=== PATIENT | male | born 1950 | race Caucasian/White ===

== ENCOUNTER 2017-12-28 14:06 | Emergency (ER) | payer MEDICARE, MEDICAID ==
[2017-12-28 14:17] VITALS: BP 136/95
[2017-12-28] MEDS ORDERED: DIPHTH,PERTUSS(ACELL),TET VAC 0.5 ML VIAL IM ONE ×2 (14:32→14:39)
--- NOTE | 2017-12-28 14:36 | ERNOTE ---
Medical Problem HPI - Narrative Date of Service: 12/28/17 - General Chief Complaint: Laceration Time Seen by Provider: 12/28/17 14:12 Source: patient Exam Limitations: no limitations - Immun/Allergies/Home Medications Immunizations: IMMUNIZATION HX Immunizations Up to Date No History of Influenza Vaccine Yes Hx Pneumococcal Vaccination No Home Medications: HOME MEDICATIONS Amitriptyline HCl [Elavil] 50 mg PO HS 12/28/17 [Last Taken Unknown] Aspirin [Aspir-Low] 81 mg PO DAILY 12/28/17 [Last Taken Unknown] Atorvastatin Calcium [Lipitor] 10 mg PO DAILY 12/28/17 [Last Taken Unknown] Cetirizine HCl 10 mg PO DAILY 12/28/17 [Last Taken Unknown] Levothyroxine Sodium [Synthroid] 125 mcg PO DAILY 12/28/17 [Last Taken Unknown] Triamterene/Hydrochlorothiazid [Maxzide 37.5MG/25 MG] 1 tab PO DAILY 12/28/17 [ Last Taken Unknown] amLODIPine BESYLATE [Norvasc] 5 mg PO DAILY 12/28/17 [Last Taken Unknown] clonazePAM [Klonopin] 0.5 mg PO BID 12/28/17 [Last Taken Unknown] - History of Present History Narrative: Pt. comes in with laceration on the volar surface of his R Ring finger that he obtained just prior to arrival when he was changing a light bulb in his garage and the bulb broke. Pt. also states that he somehow scraped up his knuckles but is unsure of how that happened. Pt. is also unsure of when his last tetanus vaccine was. Pt. states that the bleeding was stopped with pressure and that movement worsens it. Review of Systems - Review of Systems Constitutional: Present: no symptoms reported. Absent: fever, chills, weakness , malaise EYE: Present: no symptoms reported ENT: Present: no symptoms reported Respiratory: Present: no symptoms reported. Absent: shortness of breath, cough , wheezing Cardiology: Present: no symptoms reported. Absent: chest pain, palpitations, edema Gastrointestinal/Abdominal: Present: no symptoms reported. Absent: nausea, vomiting, diarrhea Genitourinary: Present: no symptoms reported. Absent: pain, dysuria, decreased urinary output Musculoskeletal: Present: joint pain - R fourth PIP and MCP Skin: Present: other - laceration R between fouth PIP and the 4th MCP volar deep into subcutaneous not into mucle, no tendon injury noted Neurological: Present: pre-existing deficit - from DD. Absent: headache, dizziness/light-headedness, seizure, weakness, numbness Endocrine: Present: no symptoms reported Hematologic/Lymphatic: Present: no symptoms reported. Absent: easy bruising, easy bleeding All Other Systems: All systems neg except as marked - Patient's Past Medical History Patient History - Medical: Hypothyroidism Patient History - Cardiac/Respiratory: Hypertension Patient History - Cancer: No Hx of Cancer Patient History - Surgical Procedures: No surgical history Patient History - Other: None - Social History Living Situations: alone Psych History: No pertinent hx Smoking Status: Never smoker Have you smoked in the past 12 months: No Do you dip or chew tobacco: No Alcohol Use: none Drug Use: none - Immunizations Immunizations Up to Date: No Hx Pneumococcal Vaccination: No History of Influenza Vaccine: Yes Physical Exam - Physical Exam General Appearance: Present: wd/wn, alert, no apparent distress Head Exam: Present: normal inspection, no evidence of injury Eye Exam: Normal inspection: bilateral Respiratory: Present: no respiratory distress, normal breath sounds, no accessory muscle use, chest nontender Cardiovascular/Chest: Present: regular rate, rhythm, no murmur, normal peripheral pulses Back Exam: Present: normal inspection, normal range of motion, no CVA tenderness , no vertebral tenderness. Absent: CVA tenderness (R), CVA tenderness (L) Extremity Exam: Present: normal range of motion, other - laceration R between fouth PIP and the 4th MCP volar deep into subcutaneous not into mucle, no tendon injury noted. Absent: bony tenderness Neurological Exam: Present: alert, oriented, normal mood/affect, no motor/ sensory deficits Skin Exam: Present: normal color, warm/dry ED Progress - Vital Signs Patient's Vital Signs:: I have reviewed the patient's vital signs. Vital Signs: Vital Signs 12/28/17 14:11 Temperature 37.1 C Pulse Rate 118 H Respiratory 18 Rate Blood Pressure 136/95 O2 Sat by Pulse 95 Oximetry - Progress/Reassessment Chief Complaint: Laceration Progress:: Improved Procedures Right Medial Volar Finger 4th Digit Date and Time: 12/28/2017 @ 1435 Anesthesia: 1% Lidocaine, Digital Block I & D Prep: betadine prep Length of Repair/Wound (cm): 1.2 Wound's Depth/Shape: into subcutaneous Wound Explored: clean, to base Wound Intervention: irrigated w/saline Distal NVT: neuro/vasc intact, no tendon injury Wound Repaired With: sutures Suture Size/Type: 4-0, silk Number of Sutures: 3 Layer Closure: Simple Estimated blood loss (ml): 0 Wound Dressing: sterile dressing applied Complications: Pt naz procedure well Departure Clinical Impression: Laceration - Departure Disposition: Home self-care Condition: Good Instructions: Laceration Care, Adult, [id number] Additional Instructions: Please follow up in a week for suture removal.
== END 2017-12-28 15:25 | disposition home or self-care (01) ==
LOC: ER 14:06
PROC: 0JQJ0ZZ Repair Right Hand Subcutaneous Tissue and Fascia, Open Approach (ICD-10-PCS; principal; 2017-12-28)
DX: Y93.E9 Activity, other interior property and clothing maintenance; W25.XXXA Contact with sharp glass, initial encounter; Z23 Encounter for immunization; Y92.008 Other place in unspecified non-institutional (private) residence as the place of occurrence of the external cause; S61.214A Laceration without foreign body of right ring finger without damage to nail, initial encounter